=== PATIENT | male | born 1990 | race Caucasian/White ===

== ENCOUNTER 2023-10-07 12:44 | Emergency (ER) | payer MEDICAID ==
[~2023-10-07] VITALS: Ht 167.6 cm; Wt 95.3 kg
[2023-10-07 12:45] VITALS: BP_SYST 130; PULSE 79; RESP 18; TEMP 97.2; O2SAT 98
[2023-10-07 14:06] LABS: BASOPHILS % (AUTO) 0.4 % (0.0-2.0); EOSINOPHILS % (AUTO) 0.1 % (0.0-4.0); HEMATOCRIT 43.9 % (36-54); HEMOGLOBIN 15.2 g/dL (14.0-18.0); LYMPHOCYTES % (AUTO) 13.7 % (20.5-51.5); MEAN CORPUSCULAR HEMOGLOBIN 30 pg (27-31); MEAN CORPUSCULAR HGB CONC 35 % (32-36); MEAN CORPUSCULAR VOLUME 87 fL (79.0-98.0); MONOCYTES # (AUTO) 0.7 K/uL (0.0-1.0); MONOCYTES % (AUTO) 9.1 % (1.7-9.3); NEUTROPHILS # (AUTO) 5.8 K/uL (1.8-7.7); NEUTROPHILS % (AUTO) 76.7 % (40.0-70.0); PLATELET COUNT (AUTO) 267 K/uL (130-430); RED BLOOD CELL COUNT(AUTO) 5.04 MIL/uL (4.2-6.2); RED CELL DISTRIBUTION WIDTH 12.6 % (9.0-15.0); WHITE BLOOD COUNT (AUTO) 7.6 K/uL (4.8-10.8)
[2023-10-07 14:32] LABS: POTASSIUM 3.8 mmol/L (3.5-5.1)
[2023-10-07 14:33] LABS: CREATININE 0.99 mg/dL (0.55-1.30)
[2023-10-07 14:34] LABS: ALBUMIN 3.4 g/dL (3.4-4.8); TOTAL BILIRUBIN 0.5 mg/dL (0.0-1.0); TOTAL PROTEIN, SERUM 7.5 g/dL (6.4-8.3)
[2023-10-07] MEDS ORDERED: AUG875 PO (14:39)
[2023-10-07] MEDS ORDERED: FLUT16SP16 NS (14:39)
[2023-10-07] MEDS ORDERED: IBUP-1971 PO (14:39)
[2023-10-07 14:49] LABS: CALCIUM 8.6 mg/dL (8.4-11.0)
[2023-10-07] MEDS: AMOXICILLIN 500 MG CAPSULE PO ONE (14:49)
[2023-10-07] MEDS: KETOROLAC TROMETHAMINE 60 MG/2 ML VIAL IM ONE (14:49)
[2023-10-07 14:57] VITALS: BP_SYST 130; PULSE 79; RESP 18; TEMP 97.2; O2SAT 98
== END 2023-10-07 14:59 | disposition home or self-care (01) ==
LOC: SED 12:44
DX: J32.1 Chronic frontal sinusitis (principal); R51.9 Headache, unspecified
CPT/HCPCS: 99285; 70450; 80053; 85025; 36415; 96372; 83605; 82397; J1885